=== PATIENT | male | born 1985 | race African-American/Black ===

== ENCOUNTER 2023-07-09 14:50 | Outpatient (CLI) | payer OTHER ==
--- NOTE | 2023-07-09 15:46 | CT Report ---
PROCEDURE: Head WO INDICATIONS: HEAD AND RIGHT SHOULDER PAIN TECHNIQUE: Noncontrast 4.5 mm thick angled axial sections acquired from the foramen magnum to the vertex. For r adiation dose reduction, the following was used: automated exposure control, adjustment of mA and/or kV according to patient size. COMPARISON: None. FINDINGS: Image quality: Excellent. CSF spaces: Basal cisterns are patent. No extra-axial fluid collections. Ventricles are normal in size and shape. Brain: No midline shift. No intracranial masses or hemorrhage. Wild-white matter interface is norm al. Skull and face: Calvarium and visualized facial bones are intact, without suspicious lesions. Sinuses: Patchy bilateral ethmoid opacification. Mastoids are clear. IMPRESSION: 1. No acute intracranial pathology. 2. Chronic ethmoid sinusitis. Reviewed by: Ammon Rodriguez MD on 07/09/2023 3:45 PM PST Approved by: Ammon Rodriguez MD on 07/09/2023 3:45 PM PST Station ID: [id number]
--- NOTE | 2023-07-09 17:28 | XRAY Report ---
PROCEDURE: Shoulder 2+V RT INDICATIONS: PAIN IN RIGHT SHOULDER TECHNIQUE: 3 views of the shoulder were acquired. COMPARISON: None. FINDINGS: Bones: No fractures or dislocations. Moderate acromioclavicular joint osteoarthritic changes are see n with joint space narrowing and prominent marginal osteophyte formation. No suspicious bony lesions. Visualized ribs appear intact. Soft tissues: No suspicious soft tissue calcifications. The visualized lungs are within normal limi ts. IMPRESSION: No acute bony abnormality. Moderate acromioclavicular joint osseous arthritis. Reviewed by: Robinson Martin MD on 07/09/2023 5:26 PM PST Approved by: Robinson Martin MD on 07/09/2023 5:26 PM PST Station ID: [id number]
== END 2023-07-09 14:51 | disposition home or self-care (01) ==
LOC: DI 14:50
PROVIDERS: ATTEND Registered Nurse
DX: J32.2 Chronic ethmoidal sinusitis (principal); M19.011 Primary osteoarthritis, right shoulder